=== PATIENT | male | born 1975 | race Caucasian/White ===

== ENCOUNTER 2016-05-27 14:28 | Emergency (ER) | payer MEDICARE ==
[2010-08-25 22:28] VITALS: BMI 33.2
== END 2016-05-27 16:15 | disposition home or self-care (01) ==
LOC: D.ER 14:28
DX: F41.9 Anxiety disorder, unspecified (principal); F19.939 Other psychoactive substance use, unspecified with withdrawal, unspecified; I10 Essential (primary) hypertension

== ENCOUNTER 2016-06-14 18:24 | Emergency (ER) | payer MEDICARE ==
[2010-08-25 22:28] VITALS: BMI 33.2
== END 2016-06-14 19:52 | disposition home or self-care (01) ==
LOC: D.ER 18:24
DX: I10 Essential (primary) hypertension (principal); F41.9 Anxiety disorder, unspecified; M54.9 Dorsalgia, unspecified; M54.5 Low back pain; F41.0 Panic disorder [episodic paroxysmal anxiety]

== ENCOUNTER 2016-06-21 14:22 | Emergency (ER) | payer MEDICARE ==
[2010-08-25 22:28] VITALS: BMI 33.2
== END 2016-06-21 18:00 | disposition home or self-care (01) ==
LOC: D.ER 14:22
DX: F90.9 Attention-deficit hyperactivity disorder, unspecified type (principal); F32.9 Major depressive disorder, single episode, unspecified; I10 Essential (primary) hypertension; F41.9 Anxiety disorder, unspecified; F41.0 Panic disorder [episodic paroxysmal anxiety]